=== PATIENT | female | born 1950 | race Caucasian/White ===

== ENCOUNTER 2016-11-09 23:01 | Emergency (ER) | payer MEDICARE, OTHER ==
[2016-11-09] MEDS: IOPAMIDOL 370 (76%) 100 ML VIAL IV ONE (23:38)
[2016-11-09 23:45] LABS: ABSOLUTE NEUTROPHIL COUNT 3.8 K/mm3 (1.8-7.7); BASO # 0.1 K/mm3 (0.0-0.2); BASO % 0.9 % (0.2-1.0); EOS # 0.1 (0.0-0.5); EOS % 1.5 % (0.9-2.9); HEMATOCRIT 42.5 % (37.0-47.0); HEMOGLOBIN 13.9 gm/l (12.0-16.0); IMM NEUT% 0.1 % (0-1); LYMPH # 3.3 (1.0-4.8); LYMPH % 41.6 % (15-45); MEAN CELL VOLUME 91.2 fl (81.0-99.0); MEAN CORPUSCULAR HEMOGLOBIN 29.8 pg (27.0-31.0); MEAN CORPUSCULAR HGB CONC 32.7 g/dl (33.0-37.0); MEAN PLATELET VOLUME 10.5 fl (7.4-10.4); MONO # 0.7 (0.0-0.8); MONO % 8.3 % (4-12); NEUT % 47.6 % (43-75); PLATELET COUNT 250 K/mm3 (130-400); RED CELL DISTRIBUTION WIDTH 13.3 % (11.5-14.5)
[2016-11-09 23:54] LABS: ALB/GLOB RATIO 1.4 (>1.0); ALBUMIN 4.3 gm/dL (3.5-5.7); CALCIUM 9.5 mg/dL (8.6-10.3); MAGNESIUM 2.4 mg/dL (1.9-2.7)
[2016-11-10 00:19] LABS: URINE BILIRUBIN NEGATIVE (NEGATIVE); URINE BLOOD NEGATIVE (NEGATIVE); URINE GLUCOSE (UA) NEGATIVE (NEGATIVE); URINE LEUKOCYTE ESTERASE TRACE (NEGATIVE); URINE NITRITE POSITIVE (NEGATIVE); URINE PROTEIN NEGATIVE (NEGATIVE); URINE UROBILINOGEN NORMAL (0-1 mg/dl)
[2016-11-10] MEDS ORDERED: ASPIRIN (UNCOATED) 325 MG TABLET ONE (00:19)
[2016-11-10 00:20] LABS: URINE APPEARANCE CLEAR; URINE COLOR YELLOW
[2016-11-10 00:22] LABS: URINE EPITHELIAL CELLS RARE /hpf; URINE RBC 0 /hpf; URINE WBC 0-1 /hpf
[2016-11-10 00:23] LABS: URINE BACTERIA 2+
--- NOTE | 2016-11-10 08:49 | CT ---
EXAMINATION:CT SCAN HEAD W/O CONTRAST. CLINICAL INDICATION:Sudden onset of unsteady gait and dizziness. Altered mental status. COMPARISON:None TECHNIQUE: A Cranial CT was performed using a [employer] multislice CT scanner. Axial images were acquired from just above the vertex through the skull base. 4 mm stacked axial, sagittal, and coronal reconstructed images were reviewed. FINDINGS: CSF containing spaces are mildly prominent. There is mild diminished attenuation in the periventricular white matter tracts bilaterally. No acute intracranial hemorrhage or extra-axial fluid collections are identified.:There is no mass effect or midline shift. The posterior fossa is unremarkable. The cerebellar pontine angle cisterns are normal and symmetric. The osseous structures are intact. The paranasal sinuses are unremarkable. The orbits and retrobulbar regions are unremarkable.:The mastoid sinuses are clear. The scalp and adjacent soft tissues are unremarkable. IMPRESSION: Mild diffuse involutional appearance and minimal microvascular white matter changes. No acute intracranial abnormality is identified. Findings were communicated by [facility] to the emergency department at: 2358 hours 11/09/2016
--- NOTE | 2016-11-10 08:53 | CT ---
EXAMINATION: Cranial CT angiogram without and with contrast. 3-D post processing. CLINICAL INDICATION:Stroke symptoms COMPARISON:None TECHNIQUE: Multi-slice [employer] CT scanner was used. Axial images were acquired from the skull base to the vertex in a standard fashion. Sagittal axial and coronal stacked reconstructed images were reviewed. Following uneventful intravenous administration of 100 milliliters of Isovue 300, axial images were acquired in a similar fashion. Stacked images were again reviewed. 3-D MIP post processing was performed at the technologist workstation. NASCET criteria was used for stenosis measurement. FINDINGS: There is normal adrenal enhancement. No enhancing mass or vascular malformations are identified. The internal carotid arteries are patent bilaterally. Minimal atherosclerotic plaquing involves the cavernosal segments. No high-grade stenosis or occlusion is seen. The bilateral anterior cerebral and middle cerebral arteries are unremarkable. The posterior communicating arteries appear patent. The vertebral basilar system is normal in appearance with no focal irregularities. No acute intracranial normality is are identified. IMPRESSION: 1. Normal intracranial/[place] CT angiogram minimal atherosclerotic plaquing at the cavernosal segments of the internal carotid arteries. No stenosis occlusion aneurysm or acute abnormality is identified. 2. No acute intracranial process is seen. Findings were communicated by [facility] to the emergency department at: 2358 hours 11/09/2016
--- NOTE | 2016-11-10 08:57 | CT ---
EXAMINATION: CTA CAROTID W/ POST PROCESS: CLINICAL INDICATION: Sudden onset dizziness. Unsteady gait. TECHNIQUE: Following uneventful administration of 80 cc of Isovue 370 intravenously, axial images were obtained from the posterior fossa to the superior mediastinum. Sagittal and coronal reconstructed images are acquired and reviewed. 3D MIP postprocessing was performed at the technologist workstation and reviewed in multiple planes. Stenosis measurements are based on NASCET criteria. FINDINGS: (NONANGIOGRAM FINDINGS): The visualized segments of the lung apices are clear. The superior mediastinum exhibits no adenopathy. Slight heterogeneity of the thyroid gland is noted. The trachea is midline. Vocal cords are unremarkable. There is no worrisome adenopathy. The tongue base lesions are seen. The parotid glands and submandibular glands are unremarkable. There is no inflammatory stranding or effacement of fat/soft tissue planes. Osseous structures are unremarkable. CT ANGIOGRAM FINDINGS: Visualized segments of the aortic arch are unremarkable. The innominate artery is within normal limits. There is no evidence of origin stenosis of the right subclavian artery. The right common carotid artery is normal to the bifurcation. No after chronic plaquing is seen. The right internal and extra carotid arteries are unremarkable to the skull base. The left common carotid artery exhibits no evidence of intimal thickening or stenosis. Carotid bifurcation is normal. There is no evidence of stenosis or occlusion to the skull base. The vertebral arteries are widely patent. There is no high-grade stenosis. There are unremarkable to the basilar confluence. IMPRESSION: Normal carotid CT angiogram. The vertebral arteries are patent. Findings were communicated by [facility] to the emergency department at: 2358 hours 11/09/2016
== END 2016-11-10 01:12 | disposition short-term general hospital (02) ==
LOC: ED 23:01
DX: R42 Dizziness and giddiness (principal); R00.0 Tachycardia, unspecified; J45.909 Unspecified asthma, uncomplicated; I10 Essential (primary) hypertension
CPT/HCPCS: 83880; 85379; 85025; 87086; 80053; 87186; 83735; 84484; 81001; 70450; 70496; 70498; 99285 ×2; 93005; A9270; Q9967